=== PATIENT | male | born 1945 | race Caucasian/White ===

== ENCOUNTER 2017-08-24 11:22 | Emergency (ER) | payer MEDICARE ==
[2017-08-24] MEDS ORDERED: Furosemide IV* 10 MG/ML VIAL (40 MG) IV SLOW PU ONE (11:56)
--- NOTE | 2017-08-24 12:25 | RAD ---
Indication: Anasarca. Painful ascites. Comparison: No relevant prior exams available on the [facility] for comparison. Technique: Upright AP 1204 hours Report: Obese body habitus. Extreme caudal aspect of the LEFT costophrenic angle is incompletely included in the [id number]. Minimal prominence of the interstitial markings. No pleural effusions evident. Cardiomegaly. Upper normal central pulmonary vasculature. Unremarkable mediastinal contours. Negative for free air beneath the diaphragm. IMPRESSION: Mild cardiomegaly. No compelling evidence for pulmonary edema.
[2017-08-24 12:37] LABS: ABS Basophils 0.1 10^3/ul (0-0.2); ABS Eosinophils 0.2 10^3/ul (0-0.6); ABS Lymphocytes 1.1 10^3/ul (1.0-4.8); ABS Monocytes 0.7 10^3/ul (0-0.8); ABS Neutrophils 4.2 10^3/ul (1.5-7.7); ABS Nucleated RBC 0 10^3/ul; Eosinophil % 3.7 % (0-6); Hematocrit 42 % (42-52); Hemoglobin 14.4 g/dl (14.0-18.0); Mean Corpuscular HGB Conc 34 g/dl (31-36); Mean Corpuscular Hemoglobin 31 pg (27-31); Mean Corpuscular Volume 92 fL (80-94); Mean Platelet Volume 8 um3 (7.4-10.4); Nucleated Red Blood Cells % 0; Platelet Count 108 10^3/ul (150-450); Red Blood Count 4.58 10^6/ul (4.0-5.4); Red Cell Distribution Width 15 % (10.5-15); White Blood Count 6.3 10^3/ul (3.5-10.8)
[2017-08-24 12:53] LABS: EGFR Non-African American 80.3 (>60)
[2017-08-24] MEDS ORDERED: Iodixanol* (CONTRAST) 320 MG/ML 100 ML SDV IV ONE (13:02)
[2017-08-24 13:25] LABS: Urine Appearance Clear; Urine Blood 1+ (Negative); Urine Color Yellow; Urine Ketones Negative (Negative); Urine Protein 2+(100 mg/dL) (Negative); Urine Specific Gravity 1.009 (1.010-1.030); Urine Urobilinogen Negative (Negative)
--- NOTE | 2017-08-24 14:05 | RAD ---
CLINICAL HISTORY: Abdominal pain x2 weeks with anasarca COMPARISON: None TECHNIQUE: Contrast enhanced CT examination of the abdomen and pelvis from the lung bases through the initial tuberosities. The patient received 141 mL Visipaque 320 intravenously prior to imaging.The patient received oral contrast as well prior to imaging. FINDINGS: VISUALIZED LUNG BASES: There is pleural base hypoventilatory change at the left lung base. There is no large pleural effusion. The lungs are otherwise clear. ABDOMEN AND PELVIS: There is a small hiatal hernia. There is trace perihepatic fluid. The liver has a nodular surface consistent with cirrhosis. In the posterior aspect of the right lobe of the lobar there is an ill-defined hypoattenuating focus measuring up to 2.6 cm in greatest axial dimension (image 17). The homogenously attenuating spleen is enlarged measuring just under 16 cm in greatest axial dimension. There are large splenic varices (axial image 26) that appear to communicate with the left renal vein (image 34). Small varicose veins are seen along the inferior and peripheral margin of the spleen. The pancreas and adrenal glands are grossly normal in appearance. There are numerable gallstones in the dependent portion of the gallbladder without signs of biliary obstruction. The kidneys are normal in appearance without focal mass, calcification or signs of hydronephrosis. Oral contrast has progressed as far as the transverse colon. The small and large bowel are not distended. The patient's normal appendix is identified in the right lower quadrant measuring 6 mm in diameter with gas in the lumen (coronal image 72). There is no gross retroperitoneal or mesenteric lymphadenopathy. There is coarse calcification in the prostate gland. The mildly calcified abdominal aorta and iliac arteries are normal in course and diameter. There is infiltration of the subcutaneous tissue overlying the bilateral anterolateral thighs and extending superiorly along the abdomen and flank. Degenerative changes include multilevel loss of intervertebral disc height involving the lower thoracic and lumbar spine.There are no sinister bone lesions. IMPRESSION: 1. The constellation of CT findings described above are consistent with hepatic cirrhosis with portal venous hypertension. As a result there is splenomegaly and likely a splenorenal venous shunt. There is trace ascites in the abdomen and this likely accounts for the anasarca observed clinically and visualized on this CT examination. 2. There is an ill-defined hypoattenuating lesion in the right lobe of the liver. A nonemergent basis the liver can be further characterize with ultrasound to evaluate for focal lesion or mass. 3. Cholelithiasis without signs of biliary obstruction. 4. Additional chronic and degenerative changes described in the body the report.
[2017-08-24 16:05] VITALS: BP 159/63
--- NOTE | 2017-08-24 22:33 | CONS ---
CC: Dr. Simon * CONSULTATION REPORT: DATE OF CONSULT: 08/24/17 SERVICE REQUESTING CONSULTATION: Emergency Department. PRIMARY CARE PROVIDER: Dr. Simon. REASON FOR CONSULTATION: Anasarca. SOURCE OF INFORMATION: History obtained from interview with the patient, review of past medical records. RELIABILITY: Good. HISTORY OF PRESENT ILLNESS: This is a 72-year-old man with past medical history of nonalcoholic steatohepatitis, has been in his usual state of health until approximately June when he started to notice increased abdominal swelling. He followed up with Dr. Simon. The abdominal swelling continued to increase throughout July and an ultrasound was ordered by Dr. Simon that indicated ascites as well as FOX with potential for cirrhosis. His legs started to swell as well as well as increased abdominal girth and he was referred to Gastroenterology. However, he was unable to obtain a scheduled appointment until a week from today. Today, because the swelling continued and he started to experience several days of pain, his daughter, who is a nurse, advised him to seek evaluation in the emergency department. The patient noted that the pain is described more like a pressure and is worse when bending over or standing. He has been sitting in a recliner to alleviate the pressure on his abdomen with improvement. He has had no nausea, vomiting or fevers, although has had a recent cold with associated rhinorrhea. He has noticed increasing lower extremity in addition to weight gain approximately 30 pounds over the last 2 months. He does indicate he eats healthy food, which includes obrien. Denies any shortness of breath or chest pain. REVIEW OF SYSTEMS: As per HPI including increased abdominal girth, lower extremity swelling, recent cold including rhinorrhea, weight gain, pressure over the abdomen. Otherwise, all other systems reviewed and negative. PAST MEDICAL HISTORY: Includes nonalcoholic steatohepatitis with concern for cirrhosis based on last ultrasound in July 2017. He had a parathyroidectomy , type 2 diabetes, CAD with PCI to his RCA in 1997, hypertension, hyperlipidemia , nephrolithiasis. SOCIAL HISTORY: Retired, no tobacco, drinks 2 beers a week. FAMILY HISTORY: Father with CHF. No known history of cancer, liver disease, or autoimmune disease. ALLERGIES: No known drug allergies. MEDICATIONS: Include: 1. Lantus within the last 2 months 10 units in the night. 2. Metoprolol 50 units daily. PHYSICAL EXAM: Vitals when seen by this author, blood pressure 117/62, heart rate is 66, respiratory rate is 13, 99% on room air. T-max 98. Obese man, sitting up in bed, interactive, pleasant, in no apparent distress. His oropharynx is clear. He has moist mucous membranes. Sclerae anicteric. He has non-elevated JVD. He has no cervical or supraclavicular lymphadenopathy. He has regular rate and rhythm. He has a soft 1 to 2/6 systolic ejection murmur. His lungs are clear to auscultation. His abdomen is soft, nontender, nondistended. Positive bowel sounds. Extremities are warm, well perfused. He has 2+ pitting edema from the feet to the thighs. He has additional pitting edema over his abdomen most pronounced in his suprapubic region. Suspected fluid waves, although difficult exam given obesity and subcutaneous edema. He has no notable hernias and no tenderness to deep palpation. He is alert and oriented x3. His cranial nerves II through XII are intact. DIAGNOSTIC STUDIES/LAB DATA: Labs reviewed, notable for white blood cell count 6.3, 66% neutrophils, hemoglobin 14.4, platelets 108. Lactic acid is 2.8, glucose 235. Total bilirubin is 1.6, BNP 273. Urine notable for a specific gravity of 1.009. CT abdomen and pelvis, impression is constellation of CT findings described above are consistent with hepatic cirrhosis with portal vein hypertension. As a result, there is splenomegaly and likely splenorenal venous shunt. There is trace ascites in the abdomen, this likely accounts for the anasarca observed clinically and visualized on the CT scan. There is an ill-defined hypoattenuating lesion in the right lobe of the liver. On nonemergent basis, the liver can be further characterized with an ultrasound. Cholelithiasis without signs of biliary obstruction. Additional degenerative changes described in the body of report. There is infiltration in the subcutaneous tissue overlying the bilateral anterolateral thighs and extending superiorly along the abdomen and flank. ASSESSMENT AND PLAN: This is a 72-year-old man with previous history of nonalcoholic steatohepatitis, now apparently cirrhosis with portal venous hypertension, developed progressive weight gain and anasarca over the last several months. 1. Anasarca. The patient is currently on no therapy. There is no current threat to his well being, although he is uncomfortable. I have recommended the initiation of spironolactone in addition to Lasix, lower extremity Coy bandages , extremity elevation, and low salt diet to both patient and his . I think his spironolactone and his Lasix will need to be titrated up carefully as an outpatient. He has a followup with Gastroenterology in 1 week from today. The patient and his are in agreement with this plan. I do not think he needs hospital stay at this time for the treatment of anasarca as he has had no current outpatient therapy. Prescription for spironolactone as well as Lasix will be sent in from the emergency room for the patient. We discussed at length low salt diet as well as best practice for wrapping extremities and elevation. 2. Focal liver lesion seen on CT abdomen and pelvis. This was discussed with patient and his . Recommendation will be for nonemergent ultrasound; however, he recently had a nonemergent ultrasound performed approximately 2 weeks prior. This information was relayed to both the patient and his as well as placed in the discharge paperwork from the emergency department. Further attention if needed should be paid to this lesion by Dr. Simon. 3. Thrombocytopenia in the setting of splenomegaly in the setting of cirrhosis. I discussed these findings and my recommendations with Dr. Han as well as the patient's , all in agreement. [id number]/[facility] #: [id number] MTDD
--- NOTE | 2017-08-26 11:08 | ED ---
Conner Londono Stephanie, scribed for Servando Han MD on 08/24/17 at 1153 . Abdominal Pain/Male - HPI Summary HPI Summary: The pt is a 72 y/o M presenting to the ED with c/o abd pain that began 2 weeks ago since 08/10. The pt reports lower abd swelling since June. Symptoms include ankle edema. The pt reports that he cannot get in to see his GI doctor until next week. Pt seen at [facility] and told he has ascites in lower abd. He denies CP, SOB or radiation of the pain to the upper abd. The pt rates the pain as a 5 in severity. He reports a 30 lb increase in weight since June. - History of Current Complaint Chief Complaint: EDAbdPain Stated Complaint: ABD PAIN Time Seen by Provider: 08/24/17 11:44 Hx Obtained From: Patient Onset/Duration: Gradual Onset, Lasting Weeks - 3, Still Present Timing: Constant Severity Currently: Moderate Pain Intensity: 4 Pain Scale Used: 0-10 Numeric Location: Suprapubic Radiates: No Aggravating Factor(s): Nothing Alleviating Factor(s): Nothing Associated Signs And Symptoms: Positive: Other - LE edema. Negative: Chest Pain - Allergies/Home Medications Allergies/Adverse Reactions: Allergies Allergy/AdvReac Type Severity Reaction Status Date / Time No Known Allergies Allergy Verified 02/01/15 10:51 Home Medications: Home Medications Insulin GLARGINE(*) [Lantus(*)] 10 units SUBCUT QPM 08/24/17 [History Confirmed 08/24/17] PMH/Surg Hx/FS Hx/Imm Hx Endocrine/Hematology History: Reports: Hx Diabetes - type 2- USES LEVEMIR, METFORMIN Cardiovascular History: Reports: Hx Coronary Artery Disease - STENT IN RIGHT CORONARY ARTERY 1997 History: Reports: Hx Kidney Stones - FOUND INCIDENTALLY- NEVER CAUSED A PROBLEM Sensory History: Denies: Hx Contacts or Glasses, Hx Hearing Aid Opthamlomology History: Denies: Hx Contacts or Glasses Psychiatric History: Reports: Hx Anxiety - FOR APPROX 1 MONTH AFTER CARDIAC STENT PLACED - Surgical History Surgery Procedure, Year, and Place: CARDIAC STENT- 1997- [place] [facility] Hx Anesthesia Reactions: No Infectious Disease History: No Infectious Disease History: Denies: Traveled Outside the [place] in Last 30 Days - Family History Known Family History: Positive: Cardiac Disease - CHF - Social History Occupation: Employed Full-time Lives: With Family Alcohol Use: Occasionally Alcohol Amount: 1 GLASS WINE TWICE WEEKLY Substance Use Type: Reports: None Smoking Status (MU): Never Smoked Tobacco Review of Systems Negative: Fever, Chills Negative: Erythema Negative: Sore Throat Negative: Chest Pain Negative: Shortness Of Breath, Cough Positive: Abdominal Pain. Negative: Vomiting, Nausea Negative: dysuria, hematuria Positive: Edema - LE bilateral ankles. Negative: Myalgia Negative: Rash Psychological: Other - Negative: dizziness All Other Systems Reviewed And Are Negative: Yes Physical Exam - Summary Physical Exam Summary: Constitutional: Well-developed, Well-nourished, Alert. (-) Distressed Skin: Warm, Dry HENT: Normocephalic; Atraumatic Eyes: Conjunctiva normal Neck: Musculoskeletal ROM normal neck. (-) JVD, (-) Stridor, (-) Tracheal deviation Cardio: Rhythm regular, rate normal, Heart sounds normal; Intact distal pulses; The pedal pulses are 2+ and symmetric. Radial pulses are 2+ and symmetric. (-) Murmur Pulmonary/Chest wall: Effort normal. (-) Respiratory distress, (-) Wheezes, (-) Rales Abd: Soft, (-) Tenderness, anasarca 2+ up to level of umbilicus, (-) Guarding, ( -) Rebound Musculoskeletal: (-) Edema Lymph: (-) Cervical adenopathy Neuro: Alert, Oriented x3 Psych: Mood and affect Normal Triage Information Reviewed: Yes Vital Signs On Initial Exam: Initial Vitals Temp Pulse Resp BP Pulse Ox 98.0 F 74 15 166/87 100 08/24/17 11:26 08/24/17 11:26 08/24/17 11:26 08/24/17 11:26 08/24/17 11:26 Vital Signs Reviewed: Yes Diagnostics - Vital Signs Vital Signs Temp Pulse Resp BP Pulse Ox 08/24/17 11:26 98.0 F 74 15 166/87 100 - Laboratory Result Diagrams: 08/24/17 12:20 08/24/17 12:20 Lab Statement: Any lab studies that have been ordered have been reviewed, and results considered in the medical decision making process. - Radiology CXR Xray Interpretation: No Acute Changes Radiology Interpretation Completed By: Radiologist - Mild cardiomegaly. No compelling evidence for pulmonary edema. - CT Abdomen/Pelvis CT Interpretation: Positive (See Comments) CT Interpretation Completed By: Radiologist - 1. The constellation of CT findings described above are consistent with hepatic cirrhosis with portal venous hypertension. As a result there is splenomegaly and likely a venous shunt. There is trace ascites in the abdomen and this likely accounts for the anasarca observed clinically and visualized on this CT examination. 2. There is an ill-defined hypoattenuating lesion in the right lobe of the liver. A nonemergent basis the liver can be further characterize with ultrasound to evaluate for focal lesion or mass. 3. Cholelithiasis without signs of biliary obstruction. 4. Additional chronic and degenerative changes described in the body the report. - EKG 12:05 Cardiac Rate: NL EKG Rhythm: Sinus Rhythm - 75 BPM EKG Interpretation: No STEMI Abdominal Pain Fem Course/Dx - Course Course Of Treatment: The pt was evaluated by hospitalist who recommended him for outpatient diuresis. Has a GI appointment next week. - Diagnoses Provider Diagnoses: Liver lesion, Edema, Cirrhosis of liver - Provider Notifications Discussed Care Of Patient With: Chris Rojas - Recommends outpatient treatment. Time Discussed With Above Provider: 15:49 Discharge - Discharge Plan Condition: Stable Disposition: HOME Prescriptions: Furosemide TAB* [Lasix TAB*] 10 mg PO DAILY #10 tab Spironolactone TAB* [Aldactone TAB 25 MG*] 25 mg PO DAILY #10 tab Patient Education Materials: Cirrhosis (ED), Edema (ED) Referrals: Alfred AGUILLON,Isidro Mathur [Primary Care Provider] - 3 Days Additional Instructions: RETURN TO THE EMERGENCY DEPARTMENT FOR CHANGING OR WORSENING SYMPTOMS. Keep GI appointment for next week. The documentation as recorded by the Conner medellin Stephanie accurately reflects the service I personally performed and the decisions made by , Servando Han MD.
== END 2017-08-24 16:11 | disposition home or self-care (01) ==
LOC: ED 11:22
DX: K76.9 Liver disease, unspecified (principal); R60.9 Edema, unspecified; K74.60 Unspecified cirrhosis of liver; R10.9 Unspecified abdominal pain; E11.9 Type 2 diabetes mellitus without complications; Z95.5 Presence of coronary angioplasty implant and graft; I25.10 Atherosclerotic heart disease of native coronary artery without angina pectoris
CPT/HCPCS: 36415; 71045; 74177; 80053; 81003; 81015; 83605; 83880; 84484; 85025; 93005; 96374; 99283; J1940; Q9967

== ENCOUNTER 2018-02-01 09:00 | Inpatient (IN) | payer MEDICARE ==
--- NOTE | 2018-02-01 09:26 | ED ---
Abdominal Pain/Male - HPI Summary HPI Summary: This is [facility] documenting for attending Servando Olivas This is [facility] documenting for attending Servando Han MD. Pt is a 72 y/o M c/o abdominal pain onset a couple weeks ago following 2nd dose of Keflax. He notes that he feels bloated and pain is rated a 5/10, per triage. Assoc Sx: appetite changes, indigestion, reflux, throat pain, diarrhea. Denies: belly pain, SOB, fever. PMHx: CAD, cerrosis of Liver. He has been moving 12 lb weights this week. Tried to roll over last night and was unable to, onsetting a panic attack. Pt was seen a few weeks ago to remove a mole on L forearm. He was prescribed Keflex. He also noted a tick bite 3 months ago for which he received antibiotics. SHx: No EtOH. - History of Current Complaint Chief Complaint: EDAbdPain Stated Complaint: BLOATING Hx Obtained From: Patient Onset/Duration: Gradual Onset, Lasting Weeks, Still Present Timing: Constant, Lasting Weeks Severity Currently: Moderate Pain Intensity: 5 Pain Scale Used: 0-10 Numeric Location: Epigastric Character: Other: - bloating Associated Signs And Symptoms: Positive: Negative - abd pain, SOB, Decreased Appetite, Other - indigestion, reflux, throat pain. Negative: Fever - Allergies/Home Medications Allergies/Adverse Reactions: Allergies Allergy/AdvReac Type Severity Reaction Status Date / Time No Known Allergies Allergy Verified 10/27/17 15:36 Home Medications: Home Medications Atorvastatin* [Lipitor 10 MG*] 10 mg PO DAILY 02/01/18 [History Confirmed ] Cholecalciferol TAB* [Vitamin D TAB*] 1,000 unit PO DAILY 02/01/18 [History Confirmed 02/01/18] Ubidecarenone [Co Q-10] 100 mg PO DAILY 02/01/18 [History Confirmed 02/01/18] Vitamin B Complex CAP* [B Complex CAP*] 1 cap PO DAILY 02/01/18 [History Confirmed 02/01/18] PMH/Surg Hx/FS Hx/Imm Hx Endocrine/Hematology History: Reports: Hx Diabetes - type 2- USES LEVEMIR, METFORMIN Cardiovascular History: Reports: Hx Coronary Artery Disease - STENT IN RIGHT CORONARY ARTERY 1997 History: Reports: Hx Kidney Stones - FOUND INCIDENTALLY- NEVER CAUSED A PROBLEM Sensory History: Denies: Hx Contacts or Glasses, Hx Hearing Aid Opthamlomology History: Denies: Hx Contacts or Glasses Psychiatric History: Reports: Hx Anxiety - FOR APPROX 1 MONTH AFTER CARDIAC STENT PLACED - Surgical History Surgery Procedure, Year, and Place: CARDIAC STENT- 1997- [place] [facility] Hx Anesthesia Reactions: No Infectious Disease History: No Infectious Disease History: Denies: Traveled Outside the [place] in Last 30 Days - Family History Known Family History: Positive: Cardiac Disease - CHF - Social History Occupation: Employed Full-time Lives: With Family Alcohol Use: Weekly Alcohol Amount: 1 GLASS WINE TWICE WEEKLY Substance Use Type: Reports: None Smoking Status (MU): Never Smoked Tobacco Review of Systems Positive: Other - appetite changes. Negative: Fever Positive: Sore Throat, Other - reflux Negative: Shortness Of Breath Positive: Abdominal Pain, Diarrhea, Other - indigestion All Other Systems Reviewed And Are Negative: Yes Physical Exam - Summary Physical Exam Summary: Constitutional: Well-developed, Well-nourished, Alert. (-) Distressed Skin: Warm, Dry HENT: Normocephalic; Atraumatic Eyes: Conjunctiva normal Neck: Musculoskeletal ROM normal neck. (-) JVD, (-) Stridor, (-) Tracheal deviation Cardio: Rhythm regular, tachycardic, Heart sounds normal; Intact distal pulses; The pedal pulses are 2+ and symmetric. Radial pulses are 2+ and symmetric. (-) Murmur Pulmonary/Chest wall: Effort normal. (-) Respiratory distress, (-) Wheezes, (-) Rales Abd: (-) epigastric tenderness, (-) Distension, (-) Guarding, (-) Rebound, ascites Musculoskeletal: (-) Edema Lymph: (-) Cervical adenopathy Neuro: Alert, Oriented x3 Psych: Mood and affect Normal Triage Information Reviewed: Yes Vital Signs On Initial Exam: Initial Vitals Temp Pulse Resp BP Pulse Ox 98.4 F 123 18 167/74 98 02/01/18 09:03 02/01/18 09:03 02/01/18 09:03 02/01/18 09:03 02/01/18 09:03 Vital Signs Reviewed: Yes Diagnostics - Vital Signs Vital Signs Temp Pulse Resp BP Pulse Ox 02/01/18 09:14 116 168/101 97 02/01/18 09:12 121 97 02/01/18 09:03 98.4 F 123 18 167/74 98 - Laboratory Result Diagrams: 02/03/18 05:44 02/04/18 08:38 Lab Statement: Any lab studies that have been ordered have been reviewed, and results considered in the medical decision making process. - Radiology CXR Xray Interpretation: No Acute Changes - IMPRESSION: NO ACTIVE CARDIOPULMONARY DISEASE. Radiology Interpretation Completed By: Radiologist - Has been reviewed by provider. - EKG 0939 Cardiac Rate: Tachycardia - [address] Segment: Normal Abdominal Pain Fem Course/Dx - Course Course Of Treatment: Lactic acidosis may be secondary to metformin - Diagnoses Provider Diagnoses: Lactic acidosis, Ascites - Provider Notifications Discussed Care Of Patient With: Ella Sheppard Time Discussed With Above Provider: 10:55 Instructed by Provider To: Admit As Inpatient Discharge - Sign-Out/Discharge Documenting (check all that apply): Patient Departure - Discharge Plan Condition: Fair Disposition: ADMITTED TO [facility] - Billing Disposition and Condition Condition: FAIR Disposition: Admitted to [facility]
[2018-02-01 09:58] LABS: ABS Basophils 0 10^3/ul (0-0.2); ABS Eosinophils 0.1 10^3/ul (0-0.6); ABS Lymphocytes 0.9 10^3/ul (1.0-4.8); ABS Monocytes 1.1 10^3/ul (0-0.8); ABS Neutrophils 6.4 10^3/ul (1.5-7.7); ABS Nucleated RBC 0 10^3/ul; Eosinophil % 1.5 % (0-6); Hematocrit 42 % (42-52); Hemoglobin 14.6 g/dl (14.0-18.0); Lymphocyte % 10.9 % (25-47); Mean Corpuscular HGB Conc 35 g/dl (31-36); Mean Corpuscular Hemoglobin 33 pg (27-31); Mean Corpuscular Volume 95 fL (80-94); Mean Platelet Volume 7.5 um3 (7.4-10.4); Nucleated Red Blood Cells % 0.1; Platelet Count 120 10^3/ul (150-450); Red Blood Count 4.45 10^6/ul (4.00-5.40); Red Cell Distribution Width 18 % (10.5-15); White Blood Count 8.5 10^3/ul (3.5-10.8)
[2018-02-01 10:11] LABS: EGFR Non-African American 53.2 (>60)
--- NOTE | 2018-02-01 11:12 | RAD ---
HISTORY: LACTIC ACIDOSIS COMPARISONS: August 24, 2017 VIEWS: 1: frontal portable view of the chest at 11:00 AM FINDINGS: LINES AND TUBES: None. CARDIOMEDIASTINAL SILHOUETTE: The cardiomediastinal silhouette is normal for portable technique. PLEURA: The costophrenic angles are sharp. No pleural abnormalities are noted. LUNG PARENCHYMA: The lungs are clear. ABDOMEN: The upper abdomen is clear. There is no subphrenic gas. BONES AND SOFT TISSUES: No bone or soft tissue abnormalities are noted. IMPRESSION: NO ACTIVE CARDIOPULMONARY DISEASE.
[2018-02-01] MEDS ORDERED: Albuterol HFA INHALER* 8 gm MDI INH PRN (11:25)
[2018-02-01] MEDS ORDERED: Furosemide IV* 10 MG/ML 2 ML VIAL (20 MG) IV SLOW PU ONE (11:26)
[2018-02-01] MEDS ORDERED: PROCHLORPERAZINE INJ 5 MG/ML 2 ML VIAL IV PRN (11:27)
[2018-02-01] MEDS ORDERED: Morphine VIAL* 10 MG/ML 1 ML VIAL IV PRN (11:28)
[2018-02-01] MEDS: Metoprolol Succinate XL TAB* 50 MG PO SCH (13:18)
[2018-02-01] MEDS ORDERED: Dextrose 50% Syringe 50 ML* 25 GM/50 ML SYRINGE IV PUSH PRN (13:19)
[2018-02-01] MEDS ORDERED: LORazepam TAB(*) 0.5 MG PO PRN (13:21)
[2018-02-01 14:04] LABS: Urine Appearance Cloudy; Urine Blood 1+ (Negative); Urine Color Amber; Urine Ketones Negative (Negative); Urine Protein 2+(100 mg/dL) (Negative); Urine Red Blood Cell 1+(3-5/hpf) (Absent); Urine Specific Gravity 1.011 (1.010-1.030); Urine Urobilinogen Negative (Negative); Urine White Blood Cell 2+(11-20/hpf) (Absent)
[2018-02-01 15:03] LABS: INR 1.17 (0.77-1.02)
--- NOTE | 2018-02-01 15:52 | HP ---
CC: Dr. Simon, Primary Care Provider; Dr. Louis, [facility]; Consulting Pearl [facility]ger Dr. Jones * HISTORY AND PHYSICAL: DATE OF ADMISSION: 02/01/18. TIME OF EVALUATION: 11:00 a.m. PRIMARY CARE PROVIDER: Dr. Simon. RESIDENT SERVICES MANAGER: Dr. Louis. CONSULTING RESIDENT SERVICES MANAGER: Dr. Jones. CHIEF COMPLAINT: "My belly is swollen". HISTORY OF PRESENT ILLNESS: Mr. Haro is a 72-year-old male with a past medical history of type 2 diabetes, CAD, hypertension, hyperlipidemia,. FOX, cirrhosis , who presents to the emergency room with complaints of increased abdominal girth. The patient was found to have ascites and possible cirrhosis on an ultrasound done as outpatient, and he was referred to Dr. Louis in August 2017. At that point he had been diagnosed with cirrhosis felt to be secondary to fatty liver, and was referred to GI for further evaluation. The patient states at that time he had increase of his abdominal girth. He was prescribed furosemide and spironolactone and he was doing well. He states that the ascites resolved and he was feeling well until a couple weeks ago. He states that he has noticed progressive increase of his abdominal girth associated with lower extremity edema and he thinks he gained about 20 pounds over that period of time. He states he has been complaint with his medications , and he denies any changes to his diet, especially regarding salt intake. There was no fever, no chills, no abdominal pain, no nausea, no vomiting or other complaints. The patient states that for the past couple months he had two courses of cephalexin due to the dermatological procedures. When he takes cephalexin he develops diarrhea and that improves when antibiotics are completed. The last course was completed about a week ago. PAST MEDICAL HISTORY: 1. 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 2. Type 2 diabetes. 3. Coronary artery disease with PCI to RCA in 1997. 4. Hypertension. 5. Hyperlipidemia. 6. Status post parathyroidectomy. 7. Nephrolithiasis. FAMILY HISTORY: Reviewed and noncontributory. SOCIAL HISTORY: There is no history of tobacco or drug use. The patient states that he used to drink occasionally a glass of wine. Surrogate decision maker is his , Stella Haro, phone number is [phone]. REVIEW OF SYSTEMS: A 14-point review of systems was performed and all the pertinent negative and positive findings are in the HPI. PHYSICAL EXAMINATION GENERAL: The patient is a pleasant gentleman sitting up in the ED stretcher in no acute distress. VITAL SIGNS: Temperature 98.1, heart rate is 120, respiratory rate is 20, oxygen saturation 96% on room air, blood pressure 154/90. HEENT: Pupils are equal. There is scleral icterus. CHEST: Breath sounds present bilaterally with no added sounds. CVS: Normal S1, S2. Regular rate and rhythm. ABDOMEN: Obese, distended with ascites. No tenderness on palpation. No guarding. No rebound. Bowel sounds are present. EXTREMITIES: There is moderate bilateral lower extremity pitting edema. NEURO: He is alert, awake and oriented x3. Able to move all 4 extremities. LABORATORY AND IMAGING DATA: The patient had a CBC that showed WBC 8.5, hemoglobin 14.6, hematocrit 42, platelets of 120. VBG showed a pH 7.32, pCO2 of 240, pO2 of 28, bicarb 19.3. Chemistry showed of sodium 130, potassium 4.0, chloride 103, bicarb 17, anion gap was 12, BUN of 34, creatinine of 1.3. Glucose of 184, lactic acid 4.2. Calcium 8.2. LFTs show total bilirubin 5.4, AST of 214, ALT of 94, alk phos of 439, CRP of 22. Lipase 133. Chest x-ray showed no active cardiopulmonary disease. EKG done 02/01/18 at 9: 39 a.m. showed sinus tachycardia at 116 beats per minute. No acute ischemic changes. No significant changes when compared to his prior EKG from August 2017. ASSESSMENT AND PLAN: Mr. Haro is a 72-year-old male with a past medical history of FOX, liver cirrhosis, type 2 diabetes, hypertension, CAD, hyperlipidemia and nephrolithiasis who presents to the emergency room with progressive increase of his abdominal girth and lower extremity edema. 1. Decompensated liver disease. The patient has no liver cirrhosis, felt to be secondary to FOX. He was seen as outpatient by Dr. Louis in August 2017 , and at that point Dr. Louis felt this was related to fatty liver, but he wanted to rule out other causes. He agreed with continuation of low dose diuretics for his ascites, and his workup included negative hepatitis B and C serologies. Negative ALEKS, and a mildly elevated AFB at 10. The patient had an upper endoscopy done in October 2017, showed grade I esophageal varices now requiring bands and portal hypertensive gastropathy. It is unclear to me what cause this decompensation at this time. He states that he is compliant with diet and medications. He denies any recent episodes of infection. There is no signs of GI bleed. The patient will be admitted as observation to the telemetry floor, and he is going to have a diagnostic and therapeutic paracentesis. GI consultation was requested with Dr. Jones, and the patient will have an liver ultrasound. 2. Tachycardia. The patient has no signs of infection at this time. His EKG shows sinus tachycardia only, and he does not have any signs of infection at this time. He does have elevation of his lactic acid, but I believe this is secondary to metformin use in a patient with decreased liver clearance. Antibiotics are not indicated at this point, but we are going to continue to monitor him. This could be secondary to rebound, as the patient did not take his usual metoprolol. 3. Thrombocytopenia secondary to portal hypertension and hypersplenism. We will continue to monitor. 4. Acute kidney injury. The patient's creatinine was 0.93 in August and is up to 1.3 today. This is likely secondary to diuretic use in a patient with poor oncotic pressure. At this point, with significant fluid overload the plan is for paracentesis and to continue diuresis, but we will have to monitor his renal function. 5. Type 2 diabetes, last A1c was 8.4 on December 2017. We are going to hold his Lantus and metformin and he will have fingersticks a.c. and h.s., with a lispro sliding scale. 6. Hypertension, I believe his numbers are higher at this point because he did not take his metoprolol, so we will resume the metoprolol and continued to monitor. 7. DVT prophylaxis, the patient has a score of 4 on the DVT Prophylaxis Risk Assessment Guide and he will be started on SCD's. 8. Code status is full. TIME SPENT: Approximately 55 minutes were spent with the patient and 's interview, medical records review, physical examination to complete this admission, more than half of this time was spent [id number] with the patient in coordination of care. [id number]/[facility] #: [id number] [facility]ITAL[facility]
--- NOTE | 2018-02-01 16:15 | RAD ---
INDICATION: Liver cirrhosis and ascites. COMPARISON: Comparison is made with a prior CT of the abdomen and pelvis from August 24, 2017. TECHNIQUE: Multiple real-time images of the right upper quadrant were obtained. FINDINGS: There are multiple gallstones present. The gallbladder benson appear diffusely thickened although this may be secondary to surrounding ascites. No positive sonographic Sargent sign was seen. No intra or extrahepatic ductal distention is present. The common bile duct measured 0.6 cm in diameter. The liver has a nodular contour and is heterogeneous in echogenicity without discrete focal abnormality appreciated. Vascular flow is not well demonstrated in the portal vein. There is a cystic lesion present in the body of the pancreas measuring 1.4 x 1.3 x 2.0 cm in size. This is seen in retrospect on the prior CT study and appears unchanged. The right kidney is normal in size without evidence for hydronephrosis. Ascites is seen in the right and left upper quadrants and right lower quadrant. IMPRESSION: 1. CHOLELITHIASIS. 2. CIRRHOSIS, THE LIVER IS DIFFUSELY HETEROGENEOUS. NO DISCRETE FOCAL ABNORMALITY IS SEEN. FLOW IS NOT SEEN WITHIN THE PORTAL VEIN. THIS CAN BE FURTHER EVALUATED WITH A CONTRAST-ENHANCED CT STUDY. 3. ASCITES. 4. CYSTIC LESION IN THE PANCREAS UNCHANGED FROM THE PRIOR CT STUDY. RECOMMEND A FOLLOW-UP CONTRAST ENHANCED CT OF THE ABDOMEN IN 6 MONTHS TIME.
[2018-02-01] MEDS ORDERED: Perflutren Lipid Microsphere* 3 ML VIAL ONE (16:32)
[2018-02-01] MEDS: Insulin LISPRO* 1 UNITS UNIT SUBCUT SCH ×2 (16:40→21:24)
[2018-02-01] MEDS: Spironolactone TAB* 25 MG PO SCH (17:18)
--- NOTE | 2018-02-01 17:18 | ECHO ---
Patient: PHILLY PETERSEN [facility] Rec#: [id number] : 1945 Date: 02/01/2018 Age: 72y Height: 167.64 cm / 66.0 in Weight: 121.11 kg / 266.9 lbs Sex: M BSA: 2.26 Room#: [facility] Admit Date#: 02/01/2018 Type: Inpatient Referring: Ella Gonzáles MD Reading: Carrington Castellanos MD Ambulatory Service Representative: Lexii Alejo RDCS CC: Isidro Simon MD Transthoracic Echocardiogram Indication: Murmur, edema, CHF BP: 157/73 HR: 80 Rhythm: NSR Findings History: CAD, s/p PCI(RCA), DM, cirrhosis, ascites. Technical Comments: The study is technically limited due to patient body habitus. Completed at 1700. Left Ventricle: The left ventricular chamber size is normal. Mild concentric left ventricular hypertrophy is observed. Global left ventricular wall motion and contractility are within normal limits. The left ventricle appears hyperdynamic. The estimated ejection fraction is greater than 65%. Abnormal left ventricular diastolic function is observed. Abnormal left ventricular diastolic filling is observed, consistent with impaired relaxation. Left Atrium: The left atrium is mildly dilated. Right Ventricle: The right ventricle is mildly dilated. The right ventricular global systolic function is mildly to moderately reduced. Right Atrium: The right atrium is mildly dilated. Aortic Valve: The aortic valve is trileaflet. The aortic valve leaflets are mildly thickened. There is a trace of aortic regurgitation. There is no evidence of aortic stenosis. Mitral Valve: The mitral valve leaflets are mildly thickened. There is a trace of mitral regurgitation. There is no evidence of mitral stenosis. Tricuspid Valve: The tricuspid valve leaflets are normal. There is trace to mild tricuspid regurgitation. The right ventricular systolic pressure is estimated at 27 mmHg. There is evidence that pulmonary hypertension may be underestimated. There is no tricuspid stenosis. Pulmonic Valve: The pulmonic valve appears normal. There is a trace pulmonic regurgitation. There is no pulmonic stenosis. Pericardium: There is no significant pericardial effusion. A pericardial fat pad is visualized. Aorta: There is mild dilatation of the ascending aorta. There is no dilatation of the aortic arch. There is mild dilatation of the aortic root. Pulmonary Artery: The main pulmonary artery appears normal. Venous: The inferior vena cava is not visualized. Contrast: Definity was used to optimize study. 2 mL of diluted Definity was utilized. Intravenous contrast was used to enhance endocardial border definition. Conclusions Mild concentric left ventricular hypertrophy is observed. Global left ventricular wall motion and contractility are within normal limits. The estimated ejection fraction is greater than 65%. The right ventricular global systolic function is mildly to moderately reduced. There is a trace of aortic regurgitation. There is no evidence of aortic stenosis. There is a trace of mitral regurgitation. There is trace to mild tricuspid regurgitation. The right ventricular systolic pressure is estimated at 27 mmHg. There is evidence that pulmonary hypertension may be underestimated. There is no significant pericardial effusion. Measurements Name Value Normal Range RVIDd (AP) 2D 3.3 cm (0.9 - 2.6) RVDdMajor (2D) 4 cm (2.2 - 4.4) RAd ISD 4CH 5 cm (3.4 - 4.9) RA (A4C)W 3.8 cm (2.9 - 4.6) IVSd (2D) 1.2 cm (0.6 - 1) LVPWd (2D) 1.2 cm (0.6 - 1) LVIDd (2D) 4.2 cm (3.6 - 5.4) LVIDs (2D) 2.6 cm - LV FS (2D) 38 % (25 - 45) Aortic Annulus 2.1 cm (1.4 - 2.6) Ao root diameter (2D) 3.6 cm (2.1 - 3.5) Ascending Ao 3.7 cm (2.1 - 3.4) Aortic arch 2.8 cm (1.8 - 3.4) LA dimension (AP) 2D 4.3 cm (2.3 - 3.8) LAd ISD 4CH 5.2 cm (2.9 - 5.3) LA ISD 4CH W 3.4 cm (2.5 - 4.5) Name Value Normal Range LA ESV SP 4CH (A/L) 37 ml - LA ESV SP 2CH (A/L) 99 ml - LA ESV BP (A/L) 66 ml - LA ESV BP (A/L) index 29 ml/m2 - LA ESV SP 4CH (MOD) 34 ml - LA ESV SP 2CH (MOD) 93 ml - Name Value Normal Range MV E-wave Vmax 0.49 m/sec - MV deceleration time 289.5 msec - MV A-wave Vmax 1.07 m/sec - MV E:A ratio 0.46 ratio - LV septal e' Vmax 0.07 m/sec - LV lateral e' Vmax 0.1 m/sec - LV E:e' septal ratio 7 ratio - LV E:e' lateral ratio 4.9 ratio - Name Value Normal Range AV Vmax 1.54 m/sec - AV VTI 29.24 cm - AV peak gradient 9.58 mmHg - AV mean gradient 5.09 mmHg - LVOT Vmax 1.26 m/sec - LVOT VTI 25.77 cm - LVOT peak gradient 6.42 mmHg - LVOT mean gradient 3.71 mmHg - MARTHA Vmax 1.35 m/sec - Name Value Normal Range TR Vmax 2.2 m/sec - TR peak gradient 19 mmHg - RAP 8 mmHg - RVSP 27 mmHg - Name Value Normal Range PV Vmax 1.3 m/sec - PV peak gradient 6.88 mmHg -
--- NOTE | 2018-02-02 01:35 | CONS ---
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 Over the last month he has developed recurrent abdominal swelling. He was seen by Dr. Louis as an outpatient and blood studies to r/o other metabolic or viral disorders done. Diuretics had already been started were continued. He felt he lost weight and was feeling well. He had an upper endoscopy, which showed borderline varices in October. Since that time, he had a tick removed while in the [employer] property. He was placed on doxycycline. He had a second course of doxycycline. He also had a basal cell removed from his left forearm and took about 10 days of Keflex. He had another 10 days of Keflex that ended around 01/23/18. At no point did he develop any abdominal pain, vomiting, anorexia or fever. He did have some diarrhea both times while he was taking the Keflex. Today, he has had 1 loose stool and anticipates another. At the time of his original liver workup in August, he had negative hepatitis C antibody and hepatitis B surface antigen. Negative antinuclear antibody. Normal iron panel with ferritin 81, iron saturation 32%. His liver tests then showed bilirubin of 1.6, ALT 23, AST 39, and alkaline phosphatase 99. At this time, his alkaline phosphatase is strikingly up at 439 and transaminases also up at 214 and 94 AST/ALT. His INR is 1.17. Four hemoglobin A1c's recorded over the last 2 years have typically run between 7.6 and 12. His urinalysis shows 2+ protein. PAST MEDICAL HISTORY: 1. Coronary artery disease - right coronary stent in 1997. 2. Morbid obesity - typical weight was 250 or more. 3. Type 2 diabetes - A1c is 8 to 12. 4. Hypertension. 5. Status post parathyroidectomy in 2014. 6. History of renal stones. 7. Basal cell cancer, left forearm. MEDICATIONS: At home: 1. Insulin started 6 months ago. 2. Metformin 500 b.i.d. (over 10 years). 3. Spironolactone 25 mg. 4. Furosemide 10 mg. 5. Atorvastatin 10 mg. 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 He is . His daughter is an CODING DIRECTOR at [employer]. She had their first grandchild 1 month ago. In the past, he would have a glass of wine or beer 2 or 3 times a week, confirmed with his present. REVIEW OF SYSTEMS: No history of lung disease or valvular heart disease. He does not recall taking antibiotics much in the past. He has had multiple courses this year. There is no history of seizures, TIA, CVA, arrhythmias, syncope. No history of abdominal surgery or recent trauma. PHYSICAL EXAM: He is a morbidly obese man with a very protuberant prominent abdomen with collaterals visible. He is mildly icteric. He has some small spider angiomas over the shoulders. He has some temporal wasting. He has no obvious adenopathy. His lungs are clear except at the bases, there are few faint crackles on both sides. Neck appears unremarkable. Heart sounds are regular. The abdomen is obese with clear-cut ascites. Rectal deferred. Neurologic shows normal mentation, no asterixis, and he is able to walk just fine. LABORATORY DATA: CBC today hemoglobin 14.6, hematocrit 42, MCV 95, platelets 120, eos electronically normal. INR 1.16 and urinalysis 2+ protein. Remote labs - microalbumin randomly last June was 1461. IMAGING: Ultrasound today showed an abnormal liver contour c/w cirrhosis, no focal lesion, and a 6-mm common duct. Chest x-ray showed no acute disease. CT scan August 2017 did show a pancreatic cyst that was seen stable on the ultrasound today. IMPRESSION: This 72-year-old man with a longstanding history of morbid obesity and poorly controlled diabetes has liver disease attributable to that. He now presents with a complaint of renewed abdominal distension felt to be fairly rapid renewed ascites without decompensation of encephalopathy or coagulopathy despite no obvious changes of other metabolic status and compliance with his diuretics. A liver tumor or metastatic cancer is possible but would be expected to have shown some sign on the imaging already done. Paracentesis is planned. His transaminases and alkaline phosphatase are dramatically different than what he had had before and as he does not usually take supplements or over-the- counter medications, the cholestatic reaction pattern may be due to the cephalexin he has been on. His albumin at 2.0 also seems strikingly worse in a relatively short interval without any infectious or metabolic stress to induce that. It is quite low for relatively modest liver dysfunction he had had before and the modest elevation of INR. One wonders whether his proteinuria from diabetes is getting into the nephrotic syndrome range. His renal function is beginning to show signs of strain with the BUN of 34 and creatinine 1.33 up from a baseline of 23 and 0.93, but increase in diuretics is not going to be the a further answer for ascites. A modest diagnostic paracentesis could help some but will reaccumulate quickly. A TIPS procedure may need consideration, but hopefully finding another reversible factor will present itself first. [id number]/[facility] #: [id number] AISHA
[2018-02-02 06:30] LABS: ABS Basophils 0 10^3/ul (0-0.2); ABS Eosinophils 0.3 10^3/ul (0-0.6); ABS Lymphocytes 1.6 10^3/ul (1.0-4.8); ABS Monocytes 1.2 10^3/ul (0-0.8); ABS Neutrophils 5.9 10^3/ul (1.5-7.7); ABS Nucleated RBC 0 10^3/ul; Eosinophil % 3.5 % (0-6); Hematocrit 39 % (42-52); Hemoglobin 13.2 g/dl (14.0-18.0); Lymphocyte % 17.4 % (25-47); Mean Corpuscular HGB Conc 34 g/dl (31-36); Mean Corpuscular Hemoglobin 33 pg (27-31); Mean Corpuscular Volume 96 fL (80-94); Mean Platelet Volume 7.5 um3 (7.4-10.4); Nucleated Red Blood Cells % 0.1; Platelet Count 116 10^3/ul (150-450); Red Blood Count 4.02 10^6/ul (4.00-5.40); Red Cell Distribution Width 18 % (10.5-15); White Blood Count 9.1 10^3/ul (3.5-10.8)
[2018-02-02 06:46] LABS: EGFR Non-African American 50.5 (>60)
[2018-02-02] MEDS: Metoprolol Succinate XL TAB* 50 MG PO SCH (09:34)
[2018-02-02] MEDS: Insulin LISPRO* 1 UNITS UNIT SUBCUT SCH ×4 (09:34→20:30)
[2018-02-02] MEDS: Atorvastatin* 10 MG TAB PO SCH (09:34)
[2018-02-02] MEDS: Cholecalciferol TAB* 1000 UNITS PO SCH (09:34)
--- NOTE | 2018-02-02 10:49 | RAD ---
INDICATION: Cirrhosis evaluate for portal vein thrombosis. COMPARISON: Comparison is made with a prior ultrasound study from September 27, 2017. TECHNIQUE: Multiple real-time images of the right upper quadrant were obtained. FINDINGS: There is normal vascular flow within the inferior vena cava. The hepatic veins appear patent with normal direction of flow. Doppler tracings in the region of the portal vein detect arterial flow likely representing the hepatic artery. No venous flow is detected suggestive of either occlusion or very slow flow. The liver is heterogeneous with a nodular contour as previously described consistent with cirrhosis. IMPRESSION: 1. NO VENOUS FLOW DETECTED WITHIN THE PORTAL VEIN SUGGESTIVE OF OCCLUSION OR VERY SLOW FLOW. 2. CIRRHOSIS.
[2018-02-02] MEDS ORDERED: Albumin Human 25%* 25 GM/100 ML BTL IV SCH (15:00)
[2018-02-02] MEDS ORDERED: Albumin Human 25%* 25 GM/100 ML BTL IV ONE (16:45)
--- NOTE | 2018-02-02 17:02 | PN ---
Subjective Date of Service: 02/02/18 Interval History: HOSPITALIST PROGRESS NOTE Patient seen and examined at bedside. Care reviewed and d/w Deborah Sun RN. He feels a little better today. Abdome is still very distended, but denies N/V/ dyspnea, appetite is preserved. Family History: Unchanged from Admission Social History: Unchanged from Admission Past Medical History: Unchanged from Admission Objective Active Medications: Albuterol (Ventolin Hfa Inhaler*) 2 puff INH Q4H PRN PRN Reason: WHEEZING Atorvastatin Calcium (Lipitor*) 10 mg PO DAILY [facility] Last Admin: 02/02/18 09:34 Dose: 10 mg Cholecalciferol (Vitamin D Tab*) 1,000 units PO DAILY [facility] Last Admin: 02/02/18 09:34 Dose: 1,000 units Dextrose (D50w Syringe 50 Ml*) 12.5 gm IV PUSH .FOR FS < 60 - SS PRN PRN Reason: FS < 60 Albumin Human (Albumin Human 25%*) 25 gm in 100 mls @ 50 mls/hr IV ONCE ONE Stop: 02/02/18 18:44 Insulin Human Lispro (Humalog*) [address] [facility]; Protocol Last Admin: 02/02/18 16:48 Dose: Not Given Lorazepam (Ativan Tab(*)) 0.5 mg PO Q4H PRN PRN Reason: ANXIETY Last Admin: 02/01/18 13:52 Dose: 0.5 mg Metoprolol Succinate (Toprol Xl Tab*) 50 mg PO DAILY [facility] Last Admin: 02/02/18 09:34 Dose: 50 mg Midodrine (Midodrine (Nf)) 5 mg PO TID [facility]; Protocol Morphine Sulfate (Morphine Vial*) 2 mg IV Q4H PRN PRN Reason: PAIN Prochlorperazine Edisylate (Compazine Inj*) 5 mg IV Q6H PRN PRN Reason: NAUSEA/VOMITING Spironolactone (Aldactone Tab*) 25 mg PO DAILY@1600 [facility] Last Admin: 02/01/18 17:18 Dose: 25 mg Vital Signs - 8 hr 02/02/18 02/02/18 11:40 16:06 Temperature 98.9 F 97.9 F Pulse Rate 64 77 Respiratory 18 16 Rate Blood Pressure 129/54 145/63 (mmHg) O2 Sat by Pulse 97 100 Oximetry Oxygen Devices in Use Now: None Appearance: Pleasant morbid obese gentleman sitting up in bed in NAD. Eyes: No Scleral Icterus Ears/Nose/Mouth/Throat: Mucous Membranes Moist Neck: Trachea Midline Respiratory: Symmetrical Chest Expansion and Respiratory Effort, Clear to Auscultation Cardiovascular: RRR - Normal S1 and S2 Abdominal: - - Obese, NT, + ascites, NG, NR, BS+ Extremities: - - Mild LE edema Neurological: Alert and Oriented x 3, NL Muscle Strength and Tone Result Diagrams: 02/02/18 06:18 02/02/18 06:18 Assess/Plan/Problems-Billing Assessment: Mr Haro is a 72yo M with PMH of liver cirrhosis (presumed secondary to FOX), type 2 DM, CAD, HTN, HLD, who presented to ED with c/o worsening ascites, found to have decompensated liver disease. 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 This could be secondary to antibiotics (recent courses of doxycyline and cephalexin). - Surgery attempted paracentesis today, but was able to remove only 1.5 liters due to body habitus - will attempt US guided paracentesis tomorrow. - There's also concern for PV thrombosis, but US was not conclusive. Due to his PERLA, a CTA would not be prudent at this time. Plan to manage ascites with paracentesis, diuretics, midodrine and if he has improvement of his renal function, then pursue CTA. (2) PERLA (acute kidney injury) Comment: - Likely multifactorial - component of diabetic nephropathy, but also an acute component associated with liver disease. - Nephrology input apprecited - will start midodrine and continue diuretics. - Monitor renal function. (3) Type 2 diabetes mellitus Comment: - Chronically poorly controlled with A1cs ranging from 7.6 to 11.9. Most recent one is 6.9. - Continue FS ACHS with Lispro SS. (4) Lactic acidosis Comment: - Secondary to Metformin use and poor liver clearance - resolved. (5) Tachycardia Comment: - Secondary to beta-brian withdrawal - resolved. - Continue Metoprolol. (6) Hyperammonemia Comment: - Ammonia elevated at 112, but mental status is preserved with no signs of encephalopathy. - Continue to monitor - plan to start Lactulose prior to discharge. (7) DVT prophylaxis Comment: - Avoiding pharmacological prophylaxis for in the setting of worsening thrombocytopenia and liver disease related coagulopathy. - SCDs for now. (8) Full code status Status and Disposition: Inpatient. and daughter updated at bedside.
[2018-02-02] MEDS: CMCS Midodrine (NF) 5 MG TAB PO SCH ×2 (17:39→20:29)
[2018-02-02] MEDS: Spironolactone TAB* 25 MG PO SCH (17:39)
[2018-02-03 06:00] LABS: ABS Basophils 0.1 10^3/ul (0-0.2); ABS Eosinophils 0.3 10^3/ul (0-0.6); ABS Lymphocytes 1.3 10^3/ul (1.0-4.8); ABS Monocytes 1.1 10^3/ul (0-0.8); ABS Neutrophils 4.9 10^3/ul (1.5-7.7); ABS Nucleated RBC 0 10^3/ul; Eosinophil % 3.5 % (0-6); Hematocrit 34 % (42-52); Hemoglobin 11.7 g/dl (14.0-18.0); Lymphocyte % 17.7 % (25-47); Mean Corpuscular HGB Conc 34 g/dl (31-36); Mean Corpuscular Hemoglobin 33 pg (27-31); Mean Corpuscular Volume 95 fL (80-94); Mean Platelet Volume 7.5 um3 (7.4-10.4); Nucleated Red Blood Cells % 0.1; Platelet Count 101 10^3/ul (150-450); Red Blood Count 3.61 10^6/ul (4.00-5.40); Red Cell Distribution Width 18 % (10.5-15); White Blood Count 7.6 10^3/ul (3.5-10.8)
[2018-02-03 06:14] LABS: EGFR Non-African American 44.2 (>60)
[2018-02-03] MEDS: Atorvastatin* 10 MG TAB PO SCH (08:54)
[2018-02-03] MEDS: Cholecalciferol TAB* 1000 UNITS PO SCH (08:54)
[2018-02-03] MEDS: Metoprolol Succinate XL TAB* 50 MG PO SCH (08:54)
[2018-02-03] MEDS: CMCS Midodrine (NF) 5 MG TAB PO SCH ×3 (08:55→21:34)
[2018-02-03] MEDS: Insulin LISPRO* 1 UNITS UNIT SUBCUT SCH ×4 (08:58→21:30)
--- NOTE | 2018-02-03 12:44 | CONS ---
NEPHROLOGY CONSULTATION: DATE OF CONSULT: 02/03/18 HISTORY OF PRESENT ILLNESS: Mr. Haro is a 72-year-old gentleman with a history of type 2 diabetes mellitus and non-alcoholic steatohepatitis. This has been complicated by cirrhosis and recently had rapid accumulation of significant ascites. At present time, his main complaint is anorexia and easy fatigability. He denies shortness of breath or orthopnea. He has not had significant pedal edema. Of significance, he had an episode of pneumonia about a year ago and during that time, he had significant hypoglycemia, the etiology of which was never determined. He has a history of coronary artery disease and he has had PCI to his right coronary artery in 1997. He has a history of hypertension, hyperlipidemia. He has a history of parathyroidectomy because of hyperparathyroidism manifested by hypercalcemia. He has a history of nephrolithiasis. OUTPATIENT MEDICATIONS: Includin. Insulin. 2. Metformin 500 mg b.i.d. 3. Spironolactone 25 mg daily. 4. Furosemide 10 mg daily. 5. Atorvastatin 10 mg daily. SOCIAL HISTORY: He is . 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 He rarely drinks alcohol. He does not use tobacco. REVIEW OF SYSTEMS: He has no lightheadedness. No dizziness. No visual disturbances. No swallowing difficulties. No chest pain. No shortness of breath. No arthropathies. No skin rashes. PHYSICAL EXAM: He is a comfortable-appearing, white gentleman. His blood pressure has typically been in the upper 130s to lower 150 range, pulse is typically in the 70 range, respiratory rate in the low 20s. He has been afebrile. HEENT: He is normocephalic. There is scleral icterus. There is no jugular venous distention. The chest is clear. The abdomen markedly distended. There is a positive fluid wave, I was not able to palpate his liver margin. Bones, joints, extremities revealed no cyanosis or clubbing. There is trace pretibial edema. Neurologic is unremarkable. Skin reveals palmar erythema and he had Yousif's nails. LABORATORY DATA: Review of his laboratory studies reveals a white count of 7.6 , hemoglobin of 11.7, platelet count of 101,000. Sodium 136, potassium 3.8, total CO2 of 23, chloride 107, creatinine 1.56 with a BUN of 41. His calcium is 7.5, his albumin is 1.9, AST is 166, ALT 75. Urinalysis revealed 2+ protein , 1+ blood, 2+ wbc's, 1+ rbc's. IMPRESSION: 1. Non-alcoholic steatohepatitis with cirrhosis. 2. Rapidly accumulating ascites. 3. Acute renal injury. DISCUSSION: There is a suggestion on his ultrasound that he has portal vein thrombosis. A question that has been asked to me is whether or not he should have a contrast radiologic study to prove that. Clearly in the face of acute renal injury and his risks of worsening renal function would be significant. On the other hand, anticoagulation in the cirrhotic patient is also somewhat risky. He is going to be having paracentesis and I think an observation of how rapidly his ascites comes back will give some evidence as to whether or not he has portal vein thrombosis. If he does, then his ascites will very rapidly reaccumulate. 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 I have discussed the case with Dr. Restrepo. [id number]/[facility] #: [id number] [facility]ITAL[facility]
--- NOTE | 2018-02-03 14:15 | RAD ---
Indication: Cirrhosis, ascites. Therapeutic paracentesis requested. Post paracentesis February 02, 2018. Comparison: February 01, 2018 ultrasound. Technique: Limited four-quadrant abdominal ultrasound to assess for ascites. Report: Only a small volume of ascites present with dominant pocket at the RIGHT lower quadrant significantly decreased compared with the February 01, 2018 ultrasound. IMPRESSION: #. Given relative small volume of ascites with significant interval decrease compared with the February 01, 2014 exam performed prior to the February 02, 2018 paracentesis the therapeutic paracentesis was deferred at this time following telephone consultation with Dr. Gonzáles.
--- NOTE | 2018-02-03 14:36 | PN ---
Subjective Date of Service: 02/03/18 Interval History: HOSPITALIST PROGRESS NOTE Patient seen and examined at bedside. Care reviewed and d/w Shama Vizcaino RN. He feels better today. Although he denied dyspnea on admission, states he feels a difference in his breathing after paracentesis yesterday. Denies abdominal pain, N/V. Family History: Unchanged from Admission Social History: Unchanged from Admission Past Medical History: Unchanged from Admission Objective Active Medications: Albuterol (Ventolin Hfa Inhaler*) 2 puff INH Q4H PRN PRN Reason: WHEEZING Atorvastatin Calcium (Lipitor*) 10 mg PO DAILY [facility] Last Admin: 02/03/18 08:54 Dose: 10 mg Cholecalciferol (Vitamin D Tab*) 1,000 units PO DAILY [facility] Last Admin: 02/03/18 08:54 Dose: 1,000 units Dextrose (D50w Syringe 50 Ml*) 12.5 gm IV PUSH .FOR FS < 60 - SS PRN PRN Reason: FS < 60 Insulin Human Lispro (Humalog*) 0 units SUBCUT [facility]; Protocol Last Admin: 02/03/18 13:30 Dose: 3 unit Lactulose (Lactulose*) 15 ml PO TID [facility] Lorazepam (Ativan Tab(*)) 0.5 mg PO Q4H PRN PRN Reason: ANXIETY Last Admin: 02/01/18 13:52 Dose: 0.5 mg Metoprolol Succinate (Toprol Xl Tab*) 50 mg PO DAILY [facility] Last Admin: 02/03/18 08:54 Dose: 50 mg Midodrine (Midodrine (Nf)) 5 mg PO TID [facility]; Protocol Last Admin: 02/03/18 13:30 Dose: 5 mg Morphine Sulfate (Morphine Vial*) 2 mg IV Q4H PRN PRN Reason: PAIN Prochlorperazine Edisylate (Compazine Inj*) 5 mg IV Q6H PRN PRN Reason: NAUSEA/VOMITING Spironolactone (Aldactone Tab*) 50 mg PO DAILY@1600 [facility] Witch Maddison (Tucks*) 1 pad TOPICAL DAILY [facility] Vital Signs - 8 hr 02/03/18 07:50 Temperature 98.1 F Pulse Rate 73 Respiratory 16 Rate Blood Pressure 142/52 (mmHg) O2 Sat by Pulse 97 Oximetry Oxygen Devices in Use Now: None Appearance: Pleasant gentleman sitting up in bed in NAD. 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 This could be secondary to antibiotics (recent courses of doxycyline and cephalexin). - S/p paracentesis 02/02 yielded 1.5 liters due to body habitus - attempted US guided paracentesis showed only one small pocket of fluid in the RLQ, so procedure was aborted. - There's also concern for PV thrombosis, but US was not conclusive. Due to his PERLA, a CTA would not be prudent at this time. Plan to manage ascites with paracentesis, diuretics, midodrine and if he has improvement of his renal function, then pursue CTA. (2) PERLA (acute kidney injury) Comment: - Likely multifactorial - component of diabetic nephropathy, but also an acute component associated with liver disease. - Nephrology input apprecited - will start midodrine and continue diuretics. - Monitor renal function. (3) Type 2 diabetes mellitus Comment: - Chronically poorly controlled with A1cs ranging from 7.6 to 11.9. Most recent one is 6.9. - Continue FS ACHS with Lispro SS. (4) Lactic acidosis Comment: - Secondary to Metformin use and poor liver clearance - resolved. (5) Tachycardia Comment: - Secondary to beta-brian withdrawal - resolved. - Continue Metoprolol. (6) Hyperammonemia Comment: - Ammonia elevated at 177, but mental status is preserved with no signs of encephalopathy. - Start Lactulose and monitor. (7) DVT prophylaxis Comment: - Avoiding pharmacological prophylaxis for in the setting of worsening thrombocytopenia and liver disease related coagulopathy. - SCDs for now. (8) Full code status Status and Disposition: Inpatient.
[2018-02-03] MEDS: Lactulose* 15 ML UDC PO SCH ×2 (15:23→21:31)
[2018-02-03] MEDS: Spironolactone TAB* 25 MG PO SCH (15:23)
[2018-02-03] MEDS: Witch Hazel PAD* JAR TOPICAL SCH (15:24)
[2018-02-04] MEDS: Insulin LISPRO* 1 UNITS UNIT SUBCUT SCH ×4 (08:09→21:05)
[2018-02-04] MEDS: Atorvastatin* 10 MG TAB PO SCH (08:13)
[2018-02-04] MEDS: Metoprolol Succinate XL TAB* 50 MG PO SCH (08:13)
[2018-02-04] MEDS: Lactulose* 15 ML UDC PO SCH ×3 (08:14→21:04)
[2018-02-04] MEDS: Cholecalciferol TAB* 1000 UNITS PO SCH (08:14)
[2018-02-04] MEDS: CMCS Midodrine (NF) 5 MG TAB PO SCH ×3 (08:14→21:06)
[2018-02-04] MEDS: Witch Hazel PAD* JAR TOPICAL SCH (08:14)
[2018-02-04 09:05] LABS: EGFR Non-African American 50.5 (>60)
--- NOTE | 2018-02-04 11:22 | PRO ---
CC: Toney Jones MD; Isidro Simon MD * DATE OF PROCEDURE: 02/02/18 - ROOM #448 SURGEON: Stanton Mukherjee MD TIN POT OPERATOR: None. ANESTHESIA: 1% lidocaine plain used locally. PRE-PROCEDURE DIAGNOSIS: Ascites. POST-PROCEDURE DIAGNOSIS: Ascites. PROCEDURE: Paracentesis. ESTIMATED BLOOD LOSS: None. SPECIMENS: Peritoneal fluid. DRAINS: None. COMPLICATIONS: None. DESCRIPTION OF PROCEDURE: The patient was positioned supine on the stretcher. Ultrasound was used to identify pocket of fluid in the mid abdominal region. A time-out was performed. ChloraPrep was used to prep the skin and it was draped in sterile fashion and local anesthetic infiltrated. Approach was in the right mid abdomen using a 5-Mongolian catheter over needle device. Clear denise fluid was aspirated and evacuated. Canisters were used to remove a total of 1.4 L of fluid. The catheter was removed after flow ceased. The site was dressed with a bandage. He tolerated this well and there were no immediate complications. [id number]/[facility] #: [id number] [facility]
[2018-02-04] MEDS ORDERED: Morphine INJ* 2 MG/ML 1 ML SYRINGE (TWO MG - NEW SYRINGE VERSION) IV PRN (11:28)
[2018-02-04] MEDS: Benzonatate CAP* 100 MG PO SCH ×3 (12:13→21:06)
[2018-02-04 14:29] LABS: Triglycerides (BF) 41 mg/dL
[2018-02-04] MEDS: Spironolactone TAB* 25 MG PO SCH (16:57)
--- NOTE | 2018-02-04 17:11 | PN ---
Subjective Date of Service: 02/04/18 Interval History: HOSPITALIST PROGRESS NOTE Patient seen and examined at bedside. Care reviewed and d/w Mary Easton RN. He offers no new complaints at this time. Anxious about news he received from Dr. Louis re: elevated AFP and possibility of HCC. Family History: Unchanged from Admission Social History: Unchanged from Admission Past Medical History: Unchanged from Admission Objective Active Medications: Albuterol (Ventolin Hfa Inhaler*) 2 puff INH Q4H PRN PRN Reason: WHEEZING Atorvastatin Calcium (Lipitor*) 10 mg PO DAILY [facility] Last Admin: 02/04/18 08:13 Dose: 10 mg Benzonatate (Tessalon Cap*) 100 mg PO TID [facility] Last Admin: 02/04/18 13:29 Dose: 100 mg Cholecalciferol (Vitamin D Tab*) 1,000 units PO DAILY [facility] Last Admin: 02/04/18 08:14 Dose: 1,000 units Dextrose (D50w Syringe 50 Ml*) 12.5 gm IV PUSH .FOR FS < 60 - SS PRN PRN Reason: FS < 60 Insulin Human Lispro (Humalog*) 0 [facility]; Protocol Last Admin: 02/04/18 16:57 Dose: 3 unit Lactulose (Lactulose*) 15 ml PO TID [facility] Last Admin: 02/04/18 13:28 Dose: 15 ml Lorazepam (Ativan Tab(*)) 0.5 mg PO Q4H PRN PRN Reason: ANXIETY Last Admin: 02/01/18 13:52 Dose: 0.5 mg Metoprolol Succinate (Toprol Xl Tab*) 50 mg PO DAILY [facility] Last Admin: 02/04/18 08:13 Dose: 50 mg Midodrine (Midodrine (Nf)) 5 mg PO TID [facility]; Protocol Last Admin: 02/04/18 13:28 Dose: 5 mg Morphine Sulfate (Morphine Inj (Syringe)*) 2 mg IV Q4H PRN PRN Reason: PAIN Prochlorperazine Edisylate (Compazine Inj*) 5 mg IV Q6H PRN PRN Reason: NAUSEA/VOMITING Spironolactone (Aldactone Tab*) 50 mg PO DAILY@1600 [facility] Last Admin: 02/04/18 16:57 Dose: 50 mg Witch Maddison (Tucks*) 1 pad TOPICAL DAILY [facility] Last Admin: 02/04/18 08:14 Dose: 1 pad Vital Signs - 8 hr 02/04/18 02/04/18 12:03 15:20 Temperature 98.1 F 97.1 F Pulse Rate 70 70 Respiratory 16 20 Rate Blood Pressure 137/61 131/64 (mmHg) O2 Sat by Pulse 98 99 Oximetry Oxygen Devices in Use Now: None Appearance: Pleasant gentleman sitting up in a chair in NAD. 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 - Awaiting Oncology evaluation. - S/p paracentesis 02/02 yielded 1.5 liters due to body habitus - attempted US guided paracentesis showed only one small pocket of fluid in the RLQ, so procedure was aborted. - There's also concern for PV thrombosis, but US was not conclusive. Due to his PERLA, a CTA would not be prudent at this time. Plan to manage ascites with paracentesis, diuretics, midodrine and if he has improvement of his renal function, then pursue CTA. (2) PERLA (acute kidney injury) Comment: - Likely multifactorial - component of diabetic nephropathy, but also an acute component associated with liver disease. - Nephrology f/u apprecited - continue midodrine and diuretics. - Renal function remains stable. (3) Type 2 diabetes mellitus Comment: - Chronically poorly controlled with A1cs ranging from 7.6 to 11.9. Most recent one is 6.9. - Continue FS ACHS with Lispro SS. (4) Lactic acidosis Comment: - Secondary to Metformin use and poor liver clearance - resolved. (5) Tachycardia Comment: - Secondary to beta-brian withdrawal - resolved. - Continue Metoprolol. (6) Hyperammonemia Comment: - Ammonia down to 96 - continue Lactulose. (7) DVT prophylaxis Comment: - Avoiding pharmacological prophylaxis for in the setting of worsening thrombocytopenia and liver disease related coagulopathy. - SCDs for now. (8) Full code status Status and Disposition: Inpatient. Anticipate d/c in AM.
[2018-02-05 07:47] VITALS: BP 137/58
[2018-02-05] MEDS: Metoprolol Succinate XL TAB* 50 MG PO SCH (08:27)
[2018-02-05] MEDS: CMCS Midodrine (NF) 5 MG TAB PO SCH (08:27)
[2018-02-05] MEDS: Insulin LISPRO* 1 UNITS UNIT SUBCUT SCH (08:27)
[2018-02-05] MEDS: Benzonatate CAP* 100 MG PO SCH (08:27)
[2018-02-05] MEDS: Atorvastatin* 10 MG TAB PO SCH (08:27)
[2018-02-05] MEDS: Lactulose* 15 ML UDC PO SCH (08:27)
[2018-02-05] MEDS: Cholecalciferol TAB* 1000 UNITS PO SCH (08:27)
[2018-02-05] MEDS: Witch Hazel PAD* JAR TOPICAL SCH (08:28)
--- NOTE | 2018-02-06 04:06 | DS ---
CC: Dr. Louis; Dr. Jones; Dr. France DISCHARGE SUMMARY: DATE OF ADMISSION: 02/01/18 DATE OF DISCHARGE: 02/05/18 PRIMARY CARE PROVIDER: Dr. Simon. VICE PRESIDENT OF HUMAN RESOURCES: Dr. Louis. CONSULTING VICE PRESIDENT OF HUMAN RESOURCES: Dr. Jones. CONSULTING WATER VALVE MECHANIC: Dr. France. CONSULTING ONCOLOGIST: Dr. Kirk. DISCHARGE DIAGNOSES: 1. Liver disease decompensation, secondary to possible portal vein thrombosis versus hepatocellular carcinoma. 2. Acute kidney injury, likely multifactorial secondary to diabetic nephropathy, but is also on acut e component secondary to liver disease. 3. Lactic acidosis secondary to metformin and poor liver clearance. 4. Tachycardia secondary to beta brian withdrawal. 5. Hyperammonemia without hepatic encephalopathy. SECONDARY DIAGNOSES: 1. Liver cirrhosis secondary to nonalcoholic steatohepatitis. 2. Type 2 diabetes. 3. Coronary artery disease, status post PCI to the RCA. 4. Hypertension. 5. Hyperlipidemia. MEDICATION LIST: 1. Atorvastatin 10 mg p.o. daily. 2. CoQ10 100 mg p.o. daily. 3. Vitamin D 1 capsule p.o. daily. 4. Lantus 10 units subcutaneously at bedtime. 5. Metoprolol succinate 50 mg p.o. daily. 6. Furosemide 20 mg p.o. daily. 7. Albuterol HFA 1 to 2 puffs inhaled q.4 hours p.r.n. shortness of breath and wheezing. 8. Metformin was discontinued. 9. Spironolactone was increased from 25 to 50 mg p.o. daily. New medications: 1. Midodrine 5 mg p.o. t.i.d. 2. Lactulose 15 mL p.o. t.i.d. 3. Tessalon Perles 100 mg p.o. t.i.d. HOSPITAL COURSE: Mr. Haro is a 72-year-old male with a past medical history as stated above that pre sented to the emergency room with complaints of worsening ascites. The patient states that he was co mpliant with his diuretics, but he noticed progressive increase of his abdominal girth associated wit h lower extremity edema and he estimated he gained about 20 pounds. For more details about his prese ntation, I refer you to his history and physical. In the emergency room, the patient had LFTs that showed a total bilirubin of 5.4, AST of 214, ALT of 94, alk phos of 439 and this was a significant change from his last LFTs checked in August. The herlinda vergara had an abdomen ultrasound, does show cholelithiasis, cirrhosis. Flow was not seen within the p ortal vein. There was ascites and a cystic lesion in the pancreas unchanged from prior study in . On presentation, the patient had acute on chronic renal failure with a creatinine of 1.3, so we tried to avoid a contrast study. The patient had a portal vein ultrasound/Doppler that showed no ve nous flow detected within the portal vein suggestive of occlusion or very slow flow. There was some concern that maybe the liver disease decompensation would be secondary to multiple courses of antibio tics the patient had received as outpatient after dermatological procedures, especially Keflex, but t here was concern for portal vein thrombosis or malignancy causing those issues. The patient underwent paracentesis performed by general surgeon (Dr. Mukherjee.) At that time, 1.5 L f luid was removed and fluid analysis available so far showed 259 wbc's with 17 neutrophils with reacti ve mesothelial elements and macrophage is seen. There was no acute inflammation or evidence of malig vanessa. Fluid glucose was 145. Fluid total protein was 1.4, fluids triglycerides was 41. Gram stain and fluid culture showed no growth. Another paracentesis was tried with ultrasound, but the patient was found to have low volume and for that reason, the procedure was aborted. Due to his renal failure, the patient was seen in consultation by Dr. France and his recommendation w as to add midodrine and to continue diuresis. The patient's creatinine ranged from 1.3 to 1.5, and a t the time of this dictation, a 24-hour urine creatinine clearance and proteinuria is pending. As part of his workup, the patient had an AFP level checked and he was markedly elevated increasing f rom 10 in October to 759 this admission. The patient was seen in followup by Gastroenterology (Dr. Charan ferguson) and there is significant concern for hepatocellular carcinoma, so for the reason, Oncology cons ultation was requested with Dr. Kirk. He is of the same opinion that the patient may have a portal v ein thrombosis causing decompensation of his liver disease, but on the liver ultrasound done in September 2017, there was already some suggestion of portal vein thrombosis likely chronic, so hepatocellular carcinoma is high on the differential list. After paracentesis and with diuresis, the patient had improvement of his symptoms, although he did no t experience significant weight loss. The plan is for him to be discharged home today to follow up with Dr. Kirk as outpatient and if his c reatinine clearance allows, he will undergo a contrast study as outpatient. Please note that on admission the patient had a lactic acid of 4.2 and this was felt to be secondary to metformin use in the setting of poor liver clearance, so metformin has been discontinued. The patient was also found to have hyperammonemia with the ammonia level of 177, but with no signs of hepatic encephalopathy, although his described some episodes of confusion prior to admission. The patient was started on lactulose with improvement of his ammonia level down to 96 on discharge. DIET: Low salt, consistent carb diet. ACTIVITIES: As tolerated. DISPOSITION: To home. STATUS WHILE IN THE HOSPITAL: Inpatient. Please keep in mind this is a summarized version of this patient's hospital stay. If you need more in formation, please feel free to call me at [phone] or please obtain the full medical records. TIME SPENT: Approximately 45 minutes were spent to complete this discharge. [id number]/[facility] #: [id number]
--- NOTE | 2018-02-07 10:07 | CONS ---
CONSULTATION REPORT: DATE OF CONSULT: 02/07/18 REFERRING PHYSICIAN: Dr. Restrepo. DELIVERY RN: Dr. Louis. PRIMARY CARE PHYSICIAN: Dr. Simon. REASON FOR CONSULTATION: Increased AFP and decompensated ascites. HISTORY OF PRESENT ILLNESS: This is a 72-year-old male, who initially presented in August 2017 with increased abdominal girth and a 30-pound weight gain. Symptoms started in June 2017. He had been followed by Dr. Simon, who sent him for an ultrasound that showed diffuse ascites and a question of cirrhosis. He was referred to Dr. Louis, but presented to the emergency room before his scheduled appointment. He had admission in August where he was seen by Gastroenterology and started on Lasix and Aldactone. Evaluation at that time included and an abdominopelvic CT with contrast that showed cirrhosis and portal hypertension, varices, and splenomegaly. He had a 2.6-cm low attenuation lesion in the right lobe of the liver. AFP at that time was 10. Additional studies included serologies that were negative for hepatitis B and C , negative ALEKS, normal iron studies. Subsequent to that, he had an ultrasound of the liver on 09/27/17 that showed cirrhosis, portal vein thrombosis with cavernous transformation. He had done reasonably well on the Lasix and Aldactone with improvement of his edema. He had several small health issues over the past month including a dose of doxycycline for suspected Lyme disease and Keflex after removal of his basal cell cancer. Presented on 02/01/18, with 2 -week history of a marked increase in edema. He describes a very sudden onset of increasing swelling and abdominal girth as well as lower extremity edema. He thinks he gained approximately 20 pounds in 2 weeks where he reports being compliant with his medication, no significant change in diet, no fever, chills or night sweats. Slight diarrhea, but no other change in bowel symptoms. He was admitted. Followup ultrasound was essentially stable on 02/03/18, as compared to 10/02/17 with persistent portal vein thrombosis. He had a paracentesis done on 02/02/18 with white count of 259 and chemistries consistent with transudate. Blood work since shows significant deterioration of liver function with an albumin of 1.8 down from 3.0 in September, bilirubin of 7.1 up from 1.6 in September, alkaline phosphatase 445 from 99, and INR that is stable at 1.17. Treated with IV Lasix and then preparing for discharge on increased diuretics. Also of note, he had a creatinine that came back elevated at 1.39 from a baseline of 0.99. Etiology of his decompensation of his chronic liver disease is unclear. Because of the increased AFP, suspicion of malignancy. Today, after treated in the hospital, he does feel a little bit better. He feels the swelling has decreased slightly. He denies any abdominal pain, fevers , chills, night sweats, or change in urination. His breathing has been fine except for the pressure his belly puts on his abdomen. PAST MEDICAL HISTORY: 1. Coronary artery disease, status post stent in 1997, no additional events. 2. Type 2 diabetes. 3. Hypertension. 4. Increased cholesterol. 5. Obesity. 6. Hyperparathyroidism treated with parathyroidectomy. 7. Basal cell skin cancer. PAST SURGICAL HISTORY: 1. Stent. 2. Parathyroid surgery. 3. Skin lesions removed. MEDICATIONS: Planned for hospital discharge are: 1. Lipitor 10 mg a day. 2. Co-Q10 100 mcg a day. 3. Vitamin D. 4. Lantus 10 units at bedtime. 5. Metoprolol 50 mg a day. 6. Furosemide 20 mg a day. 7. Spironolactone 25 to 50 mg daily, titrated by Dr. France. 8. Albuterol 1 to 2 puffs q.4 hours p.r.n. 9. Midodrine 5 mg t.i.d. 10. Lactulose 50 mg b.i.d. 11. Tessalon Perles 100 mg b.i.d. ALLERGIES: None. FAMILY HISTORY: Heart failure, no liver disease, no autoimmune disease. 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 His daughter is an SALES APPLICATIONS ENGINEER at [employer]. Drinks less than 2 beverages per week historically. PHYSICAL EXAM: BP 137/58, temperature 98.2, heart rate 70, respirations 20, O2 sat 98%. HEENT: Jaundice. No JVD. Lungs: Clear to auscultation. Heart: Regular rate and rhythm. S1, S2. No murmurs, rubs or gallops. Abdomen: Markedly obese. Difficult to tell between underlying obesity and ascites, but he is fairly distended. Good bowel sounds. Nontender. Exam is nonspecific to hepatosplenomegaly. Extremities: +2 edema bilaterally. Good pulses and warm to the touch. Neurologic: No peripheral lymphadenopathy. Skin: No significant lesions or bruising. Neurologic: Alert and oriented x3 DIAGNOSTIC STUDIES/LAB DATA: Labs: As noted above. ASSESSMENT AND PLAN: A 72-year-old male with a recent diagnosis of cirrhosis secondary to nonalcoholic steatohepatitis. He now presents with acute decompensation and a marked increase in his AFP. CT scan done in last August showed a 2.6-cm right-sided liver lesion. I agreed that he needs a reevaluation for possible hepatocellular cancer. Differential diagnosis includes aggressive hepatocellular cancer causing decompensation of liver disease, hepatocellular cancer concurrently with decompensated cirrhosis for other reasons,. It is important to evaluate him fully and stage the possible malignancy. If his hepatocellular cancer is represented by the 2.6-cm right- sided lesion treatment options include radiofrequency ablation, once we stabilize his liver disease. It is unclear to me if he is a transplant candidate , and HCC lesion under 2 to 5 cm is an indication for transplant. At this time he has not had contrast imaging because of the increasing creatinine and his ambiguous creatinine clearance. 1. Case discussed with Dr. France. We need a 24-hour creatinine clearance, if his measured creatinine clearance is over 60, I will plan MRI of the liver with contrast. If borderline, would still consider CT liver with contrast and treatment with N-acetyl cystine. Biopsy of the right-sided lesion pending additional imaging. 2. Dr. France to titrated his Aldactone and lasix 3. He would like to go home [facility]. Dr. Resterpo had ordered a 24-hour urine, which is in his collection. The plan for him to go home, but we will meet him back in clinic in the early next week, Wednesday or Wednesday to plan additional imaging. [id number]/[facility] #: [id number] [facility]
== END 2018-02-05 11:26 | disposition home or self-care (01) | DRG 441 ==
LOC: ED 09:00 → MEDTELE 12:03 → OBSVTOIN 02-03 07:16 → MEDTELE 02-03 13:37
PROVIDERS: ADMIT Internal Medicine; ATTEND Internal Medicine
PROC: 0W9G3ZZ Drainage of Peritoneal Cavity, Percutaneous Approach (ICD-10-PCS; principal; 2018-02-02 15:00)
DX: K72.90 Hepatic failure, unspecified without coma (principal); I81 Portal vein thrombosis; R18.8 Other ascites; N17.9 Acute kidney failure, unspecified; E87.2 Acidosis; E72.4 Disorders of ornithine metabolism; K86.2 Cyst of pancreas; Z68.41 Body mass index [BMI] 40.0-44.9, adult; K76.6 Portal hypertension; K75.81 Nonalcoholic steatohepatitis (NASH); K74.60 Unspecified cirrhosis of liver; I25.10 Atherosclerotic heart disease of native coronary artery without angina pectoris; F41.9 Anxiety disorder, unspecified; E78.5 Hyperlipidemia, unspecified; E89.0 Postprocedural hypothyroidism; R00.0 Tachycardia, unspecified; D69.6 Thrombocytopenia, unspecified; D73.1 Hypersplenism; I83.90 Asymptomatic varicose veins of unspecified lower extremity; E21.3 Hyperparathyroidism, unspecified; R19.7 Diarrhea, unspecified; E89.2 Postprocedural hypoparathyroidism; E66.01 Morbid (severe) obesity due to excess calories; E11.65 Type 2 diabetes mellitus with hyperglycemia; E11.21 Type 2 diabetes mellitus with diabetic nephropathy; K80.20 Calculus of gallbladder without cholecystitis without obstruction; N18.9 Chronic kidney disease, unspecified; T38.3X5A Adverse effect of insulin and oral hypoglycemic [antidiabetic] drugs, initial encounter; K31.89 Other diseases of stomach and duodenum; I12.9 Hypertensive chronic kidney disease with stage 1 through stage 4 chronic kidney disease, or unspecified chronic kidney disease; Z95.5 Presence of coronary angioplasty implant and graft; Z87.442 Personal history of urinary calculi; Z79.4 Long term (current) use of insulin; Z79.51 Long term (current) use of inhaled steroids; Z82.49 Family history of ischemic heart disease and other diseases of the circulatory system; Z72.89 Other problems related to lifestyle; Z85.828 Personal history of other malignant neoplasm of skin; Z87.01 Personal history of pneumonia (recurrent); Y92.9 Unspecified place or not applicable
CPT/HCPCS: 36415; 49082; 71045; 76705; 80053; 81003; 81015; 82042; 82105; 82140; 82248; 82570; 82803; 82945; 83036; 83605; 83690; 84133; 84156; 84157; 84300; 84478; 84484; 85025; 85610; 85730; 86140; 87070; 87086; 87205; 89051; 93005; 93306; 93975; 99223; 99284; A9270-GY; C8929; G0378; J1940; P9047